=== PATIENT | male | born 1940 | race Two or more races ===

== ENCOUNTER 2020-04-06 21:21 | Inpatient (IN) ==
[2020-04-06] MEDS ORDERED: MAGNESIUM SULFATE IN WATER 50 ML IV ONE (22:00)
--- NOTE | 2020-04-06 22:00 | ERNOTE ---
Lower Extremity HPI - General Lower Extremities Pain: hip: right - Intertrochanteric fracture on the right Time Seen by Provider: 04/06/20 21:32 Source: patient - Immun/Allergies/Home Medications Immunizations: IMMUNIZATION HX Immunizations Up to Date Yes History of Influenza Vaccine Yes Hx Pneumococcal Vaccination More Information Required Allergies/Adverse Reactions: Allergies Allergy/AdvReac Type Severity Reaction Status Date / Time No Known Allergies Allergy Unverified 04/06/20 21:43 Home Medications: HOME MEDICATIONS Amlodipine Besylate 5 mg PO DAILY 04/06/20 [Last Taken Unknown] Aspirin [Aspirin Chewable] 81 mg PO DAILY 04/06/20 [Last Taken Unknown] Atorvastatin Calcium 40 mg PO DAILY 04/06/20 [Last Taken Unknown] Metoprolol Tartrate [Lopressor] 25 mg PO BID 04/06/20 [Last Taken Unknown] Mirtazapine 7.5 mg PO DAILY 04/06/20 [Last Taken Unknown] Nitroglycerin 0.4 mg SL PRN 04/06/20 [Last Taken Unknown] oxyCODONE HCL/ACETAMINOPHEN [Oxycodone-Acetaminophen 5-325] 1 ea PO QID 04/06/20 [Last Taken Unknown] traMADol HCL [Tramadol HCl] 50 mg PO QID 04/06/20 [Last Taken Unknown] traZODone HCL [Trazodone HCl] 50 mg PO HS 04/06/20 [Last Taken Unknown] - History of Present Illness Narrative: 79-year-old male sent from outside hospital [facility] after having a fall in his kitchen without LOC presents with a diagnosis of a right intertrochanteric fracture of the right hip accepted by orthopedics for admission to medicine with pending surgery at 9 AM. Patient denies any pain at this time states it is well controlled as long as he can get up and move around. He does have a remote history of prostate cancer throat cancer he does have hypertension and a chronic lung mass in addition patient self caths and is on trazodone at night for sleep. Patient denies any other complaints and of note has a skin tear and abrasion of the right arm Occurred: this evening, other - Patient sent in from outside hospital as a transfer with acceptance by Ortho Other Injuries: Reports: none Review of Systems - Review of Systems Constitutional: Present: no symptoms reported Musculoskeletal: Present: other - Right hip injury All Other Systems: All systems neg except as marked Medical History (Last Reviewed 04/06/20 @ 21:56 by Santo Hernandez MD) History of prostate cancer History of throat cancer Hypertension Pneumonia Self-catheterizes urinary bladder Physical Exam - Physical Exam General Appearance: Present: wd/wn, alert, no apparent distress Head Exam: Present: normal inspection, no evidence of injury Eye Exam: Normal inspection: bilateral Ears, Nose, Throat: Present: normal ENT inspection Neck: Present: normal inspection, nontender Respiratory: Present: no respiratory distress, normal breath sounds, no accessory muscle use, chest nontender Cardiovascular/Chest: Present: normal peripheral pulses, other - Occasional PVCs intermittently Gastrointestinal/Abdominal: Present: nontender, nondistended, soft Back Exam: Present: normal inspection, no CVA tenderness, no vertebral tenderness Extremity Exam: Present: other - Right leg shortened and externally rotated distal pulses intact and symmetrical sensation intact capillary refill less than 2 seconds intact bilaterally Neurological Exam: Present: alert Skin Exam: Present: normal color, warm/dry Progress - Vital Signs Vital Signs: Vital Signs 04/06/20 21:24 Temperature 37.0 C Pulse Rate 71 Respiratory Rate 28 H Blood Pressure 118/92 H O2 Sat by Pulse Oximetry 98 - EKG EKG #1 EKG: NSR, premature ventricular contraction EKG read: Reviewed by me EKG #2 EKG: NSR - Patient with intermittent PVCs repeat strip shows normal sinus rhythm - Progress/Reassessment Chief Complaint: Hip Pain/Injury Progress:: Improved Plan - Plan Plan: Per Ortho will admit to medicine. Will give patient a dose of magnesium for his PVCs and write for as needed pain medications as requested by the admitting medicine Dr. Najera. Case was discussed and accepted Departure Clinical Impression: Closed right hip fracture Qualifiers: Encounter type: initial encounter Qualified Code(s): S72.001A - Fracture of unspecified part of neck of right femur, initial encounter for closed fracture - Departure Disposition: Short Term Hospital Inpatient Condition: Good
[2020-04-07] MEDS: MORPHINE SULFATE 4 MG/ML SYRG IV PRN ×3 (00:33→08:18)
--- NOTE | 2020-04-07 05:43 | HP ---
Chief Complaint - Chief Complaint Date of Service: 04/07/20 Time of Service: 05:28 Chief Complaint: hip fracture History of Present Illness: Patient with past medical history of hypertension, prostate cancer, throat cancer, neurogenic bladder was at home and fell in his kitchen. He turned and lost his balance. He says he could tell it was fractured immediately and imaging done in [place] showed an intertrochanteric right hip fracture. He denies other symptoms. Pain is currently controlled. He was transferred here for operative management. Labs from [place] did not show significant abnormality. AST and ALT are mildly elevated in the 80s. White blood cells are a bit high at 16.8. EKG showed several PVCs, otherwise sinus rhythm. Medical History (Last Reviewed 04/06/20 @ 21:56 by Santo Hernandez MD) History of prostate cancer History of throat cancer Hypertension Pneumonia Self-catheterizes urinary bladder Surgical History: Surgical History (Last Updated 04/06/20 @ 22:01 by Claudette Norton RN) H/O right knee surgery History of prostate surgery D/T cancer Family History: Family History (Last Updated 04/06/20 @ 22:00 by Claudette Norton RN) Brother Pancreatic cancer Myocardial infarction Lung cancer Social History: (Last Updated 04/06/20 @ 21:53 by Claudette Norton RN) Social History: Marital status: lives independently: Yes current occupational status: retired Tobacco: Smoking Status: Current every day smoker tobacco type: cigarettes Smoking cigarettes per day: 30 Smoking packs per day: 1.5 Years smoked: 43 Alcohol: alcohol intake: former Substance Use: substance use type: does not use Review Of Systems (GEN) - Review of Systems Generalized/Overall Review: Absent: Fever Respiratory: Absent: Shortness of Breath Cardiac: Absent: Chest Pain, Edema Genitourinary: Present: Retention - He self caths about 5 times a day typically Musculoskeletal: Present: Joint Pain - Right hip Immunizations: IMMUNIZATION HX Immunizations Up to Date Yes History of Influenza Vaccine Yes Hx Pneumococcal Vaccination More Information Required Allergies/Adverse Reactions: Allergies Allergy/AdvReac Type Severity Reaction Status Date / Time No Known Allergies Allergy Verified 04/07/20 05:44 Home Medications: HOME MEDICATIONS Amlodipine Besylate 5 mg PO DAILY 04/06/20 [Last Taken Unknown] Aspirin [Aspirin Chewable] 81 mg PO DAILY 04/06/20 [Last Taken Unknown] Atorvastatin Calcium 40 mg PO DAILY 04/06/20 [Last Taken Unknown] Metoprolol Tartrate [Lopressor] 25 mg PO BID 04/06/20 [Last Taken Unknown] Mirtazapine 7.5 mg PO DAILY 04/06/20 [Last Taken Unknown] Nitroglycerin 0.4 mg SL PRN 04/06/20 [Last Taken Unknown] oxyCODONE HCL/ACETAMINOPHEN [Oxycodone-Acetaminophen 5-325] 1 ea PO QID 04/06/20 [Last Taken Unknown] traMADol HCL [Tramadol HCl] 50 mg PO QID 04/06/20 [Last Taken Unknown] traZODone HCL [Trazodone HCl] 50 mg PO HS 04/06/20 [Last Taken Unknown] Exam - Exam Vital Signs: Vital Signs - Last Taken Temp 36.8 C 04/07/20 04:00 Pulse 71 04/07/20 04:00 Resp 18 04/07/20 04:00 BP 117/47 04/07/20 04:00 Pulse Ox 91 L 04/07/20 04:00 Constitutional: Present: Alert, Cooperative, No distress Respiratory: Present: normal breath sounds, no respiratory distress Cardiovascular/Chest: Present: regular rate, rhythm Abdomen: Present: soft Extremity: Absent: lower extremity edema Neurologic: Present: normal mood/affect Diagnostic Studies: Laboratory Results SARS-CoV-2 (PCR) Not detected (NotDetected) 04/06/20 22:20 Assessment/Plan - Narrative Narrative: He will be undergoing surgical repair of his right intertrochanteric hip fractu re later this morning. Using the NSQIP surgical risk calculator he is above average risk for cardiac complication and postop delirium. Otherwise he is at average risk for any complication. Okay to proceed with surgery. We will need to discuss probable rehab facility placement on discharge. Pain is currently controlled with morphine. He has 4 times daily Percocet and 4 times daily tramadol on his home med list, so pain control may be more difficult. - Assessment/Plan (1) Hypertension Problem: Acute (2) Neurogenic bladder Problem: Acute (3) Closed right hip fracture Problem: Acute Qualifiers: Encounter type: initial encounter Qualified Code(s): S72.001A - Fracture of unspecified part of neck of right femur, initial encounter for closed fracture
[2020-04-07 06:48] LABS: Hematocrit 32.7 % (42.0-52.0); Hemoglobin 10.9 gm/dL (13.5-18.0); Mean Cell Volume 96.2 fl (78-100); Mean Corpuscular Hemoglobin 32.1 pg (27-31); Mean Corpuscular Hgb Conc 33.3 g/dl (32-36); Mean Platelet Volume 8.7 fl (8-11.3); Neutrophil # 10.7 K/mm3 (1.3-6.0); Neutrophil % 83.4 % (42-75.0); Platelet Count 241 K/mm3 (150-450); Red Cell Distribution Width 13.7 % (11.5-14.0); White Blood Count 12.8 K/mm3 (4.0-10.5)
[2020-04-07 07:02] LABS: Albumin * 2.7 gm/dl (3.4-5.0); Anion Gap 10.8 mmol/L (6.8-13.8); BUN/Creatinine Ratio 17.4 (9.0-21.6); Bilirubin, Total 0.4 mg/dL (0.0-1.1); Ca. Corrected For Albumin 9.1 mg/dL (8.4-10.2); Calcium * 8.4 mg/dL (7.9-10.9); Carbon Dioxide 26.2 mmol/L (24-32.6); Total Protein 6.3 gm/dL (6.2-8.2)
[2020-04-07] MEDS ORDERED: LIDOCAINE HCL 20 ML VIAL ONE (08:17)
[2020-04-07] MEDS ORDERED: ONDANSETRON HCL/PF 2 MG/ML VIAL ONE (08:18)
[2020-04-07] MEDS ORDERED: PROPOFOL VIAL IV ONE (08:18)
[2020-04-07] MEDS ORDERED: fentaNYL CITRATE/PF 50 MCG/ML AMPUL ONE (08:18)
[2020-04-07] MEDS ORDERED: ceFAZolin SODIUM 1 GM VIAL IM ONE (08:38)
--- NOTE | 2020-04-07 08:38 | CONS ---
- Reason for consultation (1) Closed right hip fracture Date of Service: 04/07/20 Reason for Consultation:: Donny is an 79-year-old gentleman who was in his kitchen last night and fell. His son who lives next door was with him at that time. He reports when he hit the ground he immediately knew that it hurt his hip. His son wanted to help him up but he advised to sign he did not think that was a good idea and requested he call the ambulance. He was brought into [facility] and evaluated by emergency department staff. He was found to have a displaced intertrochanteric hip fracture. I was contacted accepted transfer. He is admitted to Dr. Najera service and was seen this morning. At this time he has been cleared for surgery. He reports some mild soreness in his back but no other complaints. HPI - General Source: patient - History of Present Illness Timing/Duration: 24 hours Allergies/Adverse Reactions: Allergies No Known Allergies Allergy (Verified 04/07/20 05:44) Home Medications: Home Medications Medication Instructions Recorded Last Taken Amlodipine Besylate 5 mg PO DAILY 04/06/20 Unknown Aspirin [Aspirin Chewable] 81 mg PO DAILY 04/06/20 Unknown Atorvastatin Calcium 40 mg PO DAILY 04/06/20 Unknown Metoprolol Tartrate [Lopressor] 25 mg PO BID 04/06/20 Unknown Mirtazapine 7.5 mg PO DAILY 04/06/20 Unknown Nitroglycerin 0.4 mg SL PRN 04/06/20 Unknown oxyCODONE HCL/ACETAMINOPHEN 1 ea PO QID 04/06/20 Unknown [Oxycodone-Acetaminophen 5-325] traMADol HCL [Tramadol HCl] 50 mg PO QID 04/06/20 Unknown traZODone HCL [Trazodone HCl] 50 mg PO HS 04/06/20 Unknown Medications - Medications Current Medications: Current Medications Morphine Sulfate (Morphine Sulfate 4 Mg/Ml Syrg) 4 mg IV Q4H PRN PRN Reason: Pain Stop: 05/06/20 22:03 Last Admin: 04/07/20 08:18 Dose: 2 mg Documented by: Physical Examination - Exam Narrative: Patient is lying in bed at this time he is comfortable. He is alert and oriented at this time. Right lower extremity is externally rotated and shortened. He has local inguinal pain with palpation. He has no pain in his right knee, right lower leg, foot or ankle. Pulses intact right lower extremity. He reports he has sensation to light touch. He is able to plantarflex and dorsiflex the right ankle. X-rays reviewed show a displaced intertrochanteric hip fracture. Hemoglobin is 10.9. Vital signs stable. Vital Signs: Vital Signs - Last Taken Temp 37.4 C 04/07/20 06:36 Pulse 85 04/07/20 08:06 Resp 16 04/07/20 06:36 BP 110/52 04/07/20 06:36 Pulse Ox 95 04/07/20 06:36 O2 Oxygen Delivery Method Room Air - Results and Findings: Lab/Microbiology results last 24 hrs: Abnormal/Pending Laboratory Last 24 HRS 04/07/20 04/07/20 06:30 06:30 WBC 12.8 H RBC 3.40 L Hgb 10.9 L Hct 32.7 L MCH 32.1 H Immature Gran % (Auto) 1.00 H Immature Gran # (Auto) 0.13 H Neutrophils % 83.4 H Lymphocytes % 5.1 L Monocytes % 10.1 H Neutrophils # 10.7 H Lymphocytes # 0.66 L Monocytes # 1.3 H ALT 69 H Albumin 2.7 L - Assessments/Findings (1) Closed right hip fracture Diagnosis(s): Surgical risk discussed with Donny. Consents obtained. Plan is closed reduction cephalomedullary internal fixation of right intertrochanteric hip fracture. Patient will need 6 weeks of anticoagulation therapy postoperatively. Problem: Acute Qualifiers: Encounter type: initial encounter Qualified Code(s): S72.001A - Fracture of unspecified part of neck of right femur, initial encounter for closed fracture
[2020-04-07] MEDS: RINGER'S SOLUTION,LACTATED 1,000 ML IV PRN ×3 (08:48→13:27)
[2020-04-07] MEDS: METOPROLOL TARTRATE 25 MG TABLET PO SCH ×2 (08:48→20:20)
--- NOTE | 2020-04-07 09:52 | OR ---
Operative Report - Dictated Report Narrative: Date: 04/07/2020 Surgeon: Dayne Whitaker M.D. [employer] Instructor: Marvin Ospina PA-C (provided an essential set of skilled educated handset assisted with transfer, positioning, prepping, draping, placement of instruments, insertion of implants, irrigation, closure wounds, and placement of dressings all which could not be performed by the available surgical crew) Preoperative diagnosis: Closed right intertrochanteric femur fracture Postoperative diagnosis: Closed right intertrochanteric femur fracture Operations and procedures: 1. Closed reduction, cephalo-medullary fixation right intertrochanteric femur fracture 2. Intraoperative interpretation of radiographs Anesthesia: Spinal Specimens: None Estimated blood loss: 50 milliliters Retained implants: [employer] Trigen InterTAN 130 degree size 11.5 mm by 18 centimeter nail with 105 millimeter lag screw and 100 millimeter compression screw, with distal locking screw Complications: None Indications for procedure: Mr. Garcia is a 79-year-old gentleman who injured the right leg after a fall. They were admitted to the hospital after being evaluated in the emergency department. Once the medical provider felt that they were stable for surgical treatment, the risks and benefits alternatives were discussed. The risks of , blood clots, bleeding, infection, nerve/tendon/blood vessel injury, malunion, nonunion, failure of implants, painful implants, arthrosis, and need for additional procedures were discussed. The extremity was marked and consent was obtained on the floor. Procedure: After marking the operative extremity on the floor, the patient was taken to the operating room. A timeout was performed. IV antibiotics consisting of Ancef were administered. A spinal anesthetic was induced by anesthesia, and the patient was then placed onto a fracture table with a well-padded perineal post. The nonoperative leg was placed in a well-padded traction boot in slight extension without any traction with an SCD on the leg. The operative leg was placed in a well-padded traction boot. Longitudinal traction, internal rotation, and flexion were utilized in order to reduce the fracture. Preliminary images were attained utilizing C-arm in both the AP and lateral views. This confirmed that we had obtained adequate visualization of the fracture as well as reduction. Next the hip was then prepped and draped in a standard sterile fashion. Next the guidewire was placed percutaneously proximal to the greater trochanter to mag a starting point at the tip of the greater trochanter centered on the lateral view. This was passed down to the level below the lesser trochanter. A scalpel was utilized in order to dissect down to the greater trochanter in order to place the soft tissue protector down to bone. The entry drill was then placed down the proximal femur to the level of the lesser trochanter. The proper size nail was then selected and impacted into place. The outrigger was utilized in order to confirm the appropriate depth of the nail. Using the alignment device on the outrigger, an incision was made over the lateral femur. Sharp dissection was carried through the iliotibial band down to the proximal femur. The guidewire was placed into the femoral head in a center-center position on AP and lateral views. The tip-apex distance of less than 25 mm combined was obtained. Once we felt that we had placed a guidewire in the appropriate position, it was measured. Next the compression screw site was drilled through the lateral femoral cortex. This was then drilled down to the appropriate depth, again confirming that we are within the confines the bone. The derotational bar was then placed and the lag screw was drilled. The lag screw was then secured in place seating fully ensuring that we were within the confines of the bone. The compression screw was then inserted allowing for compression while releasing the traction on the leg. Using C-arm this was visualized to allow for compression across the fracture site. Once is felt that we had adequately stabilized the intertrochanteric fracture, the distal interlocking screw was placed in a dynamic position. It was confirmed to be the appropriate length and within the nail on both AP and lateral views. The nail was secured allowing for controlled compression and the outrigger was removed. The wounds were then thoroughly irrigated. Final images were obtained. The hip was placed through range of motion and showed no crepitance. The deep fascia was closed with 0 Vicryl, the subcutaneous tissue with 3-0 Vicryl, and the skin was closed with mark. Sterile dressings of Xeroform, 4 x 4, and tape were applied. All sponge, sharp, and instrument counts were correct prior to closing the wounds. The patient was then awoken and transferred to the postanesthesia care unit in stable condition.
[2020-04-07] MEDS ORDERED: MAG HYDROX/ALUMINUM HYD/SIMETH 30 ML UDC PO PRN (09:53)
[2020-04-07] MEDS ORDERED: ACETAMINOPHEN 500 MG TABLET PO PRN (09:53)
[2020-04-07] MEDS ORDERED: MAGNESIUM HYDROXIDE 30 ML UDC PO PRN (09:53)
[2020-04-07] MEDS ORDERED: ONDANSETRON HCL/PF 2 MG/ML VIAL IV PRN (09:53)
--- NOTE | 2020-04-07 10:25 | ANES ---
Anesthesia Pre Procedure Eval Vitals/Labs: Last Vital Signs Temp 36.8 C 04/07/20 10:10 Pulse 93 04/07/20 10:20 Resp 14 04/07/20 10:20 BP 114/56 04/07/20 10:20 Pulse Ox 100 04/07/20 10:20 HOME MEDICATIONS Amlodipine Besylate 5 mg PO DAILY 04/06/20 [Last Taken Unknown] Aspirin [Aspirin Chewable] 81 mg PO DAILY 04/06/20 [Last Taken Unknown] Atorvastatin Calcium 40 mg PO DAILY 04/06/20 [Last Taken Unknown] Metoprolol Tartrate [Lopressor] 25 mg PO BID 04/06/20 [Last Taken Unknown] Mirtazapine 7.5 mg PO DAILY 04/06/20 [Last Taken Unknown] Nitroglycerin 0.4 mg SL PRN 04/06/20 [Last Taken Unknown] oxyCODONE HCL/ACETAMINOPHEN [Oxycodone-Acetaminophen 5-325] 1 ea PO QID 04/06/20 [Last Taken Unknown] traMADol HCL [Tramadol HCl] 50 mg PO QID 04/06/20 [Last Taken Unknown] traZODone HCL [Trazodone HCl] 50 mg PO HS 04/06/20 [Last Taken Unknown] Allergies/Adverse Reactions: Allergies Allergy/AdvReac Type Severity Reaction Status Date / Time No Known Allergies Allergy Verified 04/07/20 05:44 - Planned Procedure Planned Procedure: RIGHT HIP FX Medication List Reviewed:: Yes Allergies Verified: Yes Medical History (Last Reviewed 04/07/20 @ 10:25 by Ethan Sosa CRNA) History of prostate cancer History of throat cancer Hypertension Pneumonia Self-catheterizes urinary bladder Surgical History (Last Reviewed 04/07/20 @ 10:25 by Ethan Sosa CRNA) H/O right knee surgery History of prostate surgery D/T cancer Family History (Last Reviewed 04/07/20 @ 10:25 by Ethan Sosa CRNA) Brother Pancreatic cancer Myocardial infarction Lung cancer - Airway/Neck/Teeth Teeth Condition: missing Mallampatti Score: 2 Thyromental (T-M) distance: > 6 cm Mandibulo Hyoid distance: > 3 cm - Respiratory Respiratory Physical: decreased breath sounds Smoking Status: Current every day smoker Discussed smoking cessation including day of surgery: Yes - Cardiovascular Tolerate Activity: Poor Heart Sounds: S1 & S2, Irregular - Gastrointestinal NPO since: mn - Anesthesia Assessment and Plan ASA Class: PS, III, E Anesthesia Type Plan: Spinal
--- NOTE | 2020-04-07 10:26 | ANES ---
Post Anesthesia Discharge - Transfer of Care Transfer of Care handoff given to nurse: Yes - Discharge from PACU Discharge from PACU when meets criteria: Yes - Discharge to ASU Discharge to ASU-no complications/pt stable: Yes
--- NOTE | 2020-04-07 10:37 | ANES ---
Post Anesthesia Assessment - Vital Signs Vitals: Last Vital Signs Temp 37.0 C 04/07/20 10:30 Pulse 87 04/07/20 10:30 Resp 14 04/07/20 10:30 BP 104/47 04/07/20 10:30 Pulse Ox 100 04/07/20 10:30 Airway Patency: Normal - Mental Status Level Of Consciousness: Awake - Pain Level Pain Score: 0 - N/V Assessment Nausea/Vomiting Presence: None Dehydration:: No
[2020-04-07] MEDS: amLODIPine BESYLATE 5 MG TABLET PO SCH (10:44)
[2020-04-07] MEDS: MIRTAZAPINE 15 MG TABLET PO SCH (10:45)
[2020-04-07] MEDS: ROSUVASTATIN CALCIUM 20 MG TABLET PO SCH (10:45)
[2020-04-07] MEDS: oxyCODONE HCL/ACETAMINOPHEN 1 TAB TABLET PO SCH ×4 (10:45→20:20)
[2020-04-07] MEDS: ceFAZolin SODIUM 1 GM in DEXTROSE 5 % IN WATER 100 ML IV SCH ×6 (11:10→23:35)
[2020-04-07] MEDS: SENNOSIDES/DOCUSATE SODIUM 1 TAB TABLET PO SCH (20:20)
[2020-04-07] MEDS: traZODone HCL 50 MG TABLET PO SCH (20:21)
[2020-04-08 06:32] LABS: Hematocrit 28.8 % (42.0-52.0); Hemoglobin 9.5 gm/dL (13.5-18.0); Mean Cell Volume 96.6 fl (78-100); Mean Corpuscular Hemoglobin 31.9 pg (27-31); Mean Platelet Volume 8.7 fl (8-11.3); Platelet Count 191 K/mm3 (150-450); Red Blood Count 2.98 M/mm3 (4.7-6.0); Red Cell Distribution Width 13.6 % (11.5-14.0); White Blood Count 9.5 K/mm3 (4.0-10.5)
[2020-04-08 06:36] LABS: Anion Gap 11.5 mmol/L (6.8-13.8); BUN/Creatinine Ratio 15.5 (9.0-21.6); Calcium * 8.3 mg/dL (7.9-10.9); Carbon Dioxide 26.3 mmol/L (24-32.6); Estimated Creat Clear 64.5; Potassium 3.8 mmol/L (3.4-4.6)
[2020-04-08] MEDS: MORPHINE SULFATE 4 MG/ML SYRG IV PRN (06:43)
[2020-04-08] MEDS: ROSUVASTATIN CALCIUM 20 MG TABLET PO SCH (09:50)
[2020-04-08] MEDS: oxyCODONE HCL/ACETAMINOPHEN 1 TAB TABLET PO SCH ×4 (09:50→20:58)
[2020-04-08] MEDS: METOPROLOL TARTRATE 25 MG TABLET PO SCH ×2 (09:51→20:59)
[2020-04-08] MEDS: amLODIPine BESYLATE 5 MG TABLET PO SCH (09:51)
[2020-04-08] MEDS: MIRTAZAPINE 15 MG TABLET PO SCH (09:51)
[2020-04-08] MEDS: RIVAROXABAN 20 MG TABLET PO SCH (10:05)
--- NOTE | 2020-04-08 11:27 | PN ---
Subjective - Date and Time Seen Date: 04/08/20 Time: 11:25 Subjective Narrative: Subjective: Reports no concerns. Was able to get to the chair with therapy. Pain is well-controlled. Catheter in place. He states that he straight caths himself at home. Tolerating by mouth intake. Denies any nausea or vomiting. Denies calf pain. Slept well. Physical exam: Alert and oriented to person, place and time Right lower extremity: Palpable dorsalis pedis pulse. Sensation grossly intact to light touch. Dressings intact. Able to flex and extend ankle and toes. No excessive drainage. Calf and thigh are soft and nontender. Assessment: Postop day 1 status post cephalomedullary fixation of right intertrochanteric femur fracture. Plan: Continue with physical and occupational therapy weightbearing as tolerated. Continue with anticoagulation-he will need 6 weeks of DVT prophylaxis. 24 hours postoperative prophylactic antibiotics. Pain control with goal to rely on oral medications. Continue bowel regimen. Will need 6 weeks with walker or assitive device to protect joint while ambulating during the recovery process. Discharge planning. Continue Chiu catheter due to pre-existing need for straight caths in the past. Objective - Vitals Vitals: Last Vital Signs Temp 37.1 C 04/08/20 10:52 Pulse 76 04/08/20 10:52 Resp 18 04/08/20 10:52 BP 114/59 04/08/20 10:52 Pulse Ox 92 L 04/08/20 10:52 - Abnormal Lab Findings Abnormal Lab Findings: Abnormal Lab Results 04/08/20 Range/Units 06:05 RBC 2.98 L (4.7-6.0) M/mm3 Hgb 9.5 L (13.5-18.0) gm/dL Hct 28.8 L (42.0-52.0) % MCH 31.9 H (27-31) pg Assessment/Plan - Problems/Diagnosis (1) Fracture, intertrochanteric, right femur Problem: Acute Qualifiers: Encounter type: subsequent encounter Fracture type: closed Fracture alignment: displaced Fracture healing: with routine healing Qualified Code(s): S72.141D - Displaced intertrochanteric fracture of right femur, subsequent encounter for closed fracture with routine healing
--- NOTE | 2020-04-08 12:13 | PN ---
Subjective - Date and Time Seen Date: 04/08/20 Time: 09:15 Subjective Narrative: He feels like his surgery went well yesterday. He was able to work with PT this morning. He has some intermittent shortness of breath, not increased from his baseline. He used IV morphine once since yesterday morning. Objective - Review of Systems Generalized/Overall Review: Denies: Fever Respiratory: Reports: Shortness of Breath - not increased from baseline. Denies: Cough Cardiac: Denies: Chest Pain, Edema Abdominal: Reports: No Symptoms Reported Genitourinary Symptoms: Reports: Retention - his baseline - self caths 5 times per day Musculoskeletal Complaints: Reports: Joint Pain - right hip - Vitals Vitals: Last Vital Signs Temp 37.1 C 04/08/20 10:52 Pulse 76 04/08/20 10:52 Resp 18 04/08/20 10:52 BP 114/59 04/08/20 10:52 Pulse Ox 92 L 04/08/20 10:52 - Abnormal Lab Findings Abnormal Lab Findings: Abnormal Lab Results 04/08/20 Range/Units 06:05 RBC 2.98 L (4.7-6.0) M/mm3 Hgb 9.5 L (13.5-18.0) gm/dL Hct 28.8 L (42.0-52.0) % MCH 31.9 H (27-31) pg - Exam Constitutional: Present: Alert, Cooperative, No distress Respiratory: Present: normal breath sounds, no respiratory distress Cardiovascular/Chest: Present: regular rate, rhythm Abdomen: Present: soft Extremity: Absent: lower extremity edema Eye contact: Present: cooperative, good eye contact Assessment/Plan Plan Narrative: He is post-op day #1 surgical repair of right intertrochanteric hip fracture. He turned in his kitchen and fell, causing the fracture. He did work with physical therapy this morning, who recommends SNF after discharge, with which he agrees. Will enlist case management help with placement tomorrow. Pain is currently controlled with his home medications plus IV morphine. Can continue the IV morphine today, and will attempt to discontinue IV pain meds tomorrow. - Problems/Diagnosis (1) Fracture, intertrochanteric, right femur Problem: Acute Qualifiers: Encounter type: subsequent encounter Fracture type: closed Fracture alignment: displaced Fracture healing: with routine healing Qualified Code(s): S72.141D - Displaced intertrochanteric fracture of right femur, subsequent encounter for closed fracture with routine healing (2) Hypertension Problem: Acute Narrative: Well controlled, even borderline low. If he develops dizziness or if systolic blood pressure remains 110 or less, will hold his 5 mg amlodipine. (3) Neurogenic bladder Problem: Acute Narrative: We will continue his Ch[place] while hospitalized. He normally self caths 5 times a day. (4) Closed right hip fracture Problem: Acute Qualifiers: Encounter type: initial encounter Qualified Code(s): S72.001A - Fracture of unspecified part of neck of right femur, initial encounter for closed fracture (5) History of throat cancer Problem: Chronic (6) History of prostate cancer Problem: Chronic
[2020-04-08] MEDS: SENNOSIDES/DOCUSATE SODIUM 1 TAB TABLET PO SCH (20:58)
[2020-04-08] MEDS: traZODone HCL 50 MG TABLET PO SCH (20:59)
[2020-04-09] MEDS: oxyCODONE HCL/ACETAMINOPHEN 1 TAB TABLET PO SCH ×4 (08:44→21:15)
[2020-04-09] MEDS: RIVAROXABAN 20 MG TABLET PO SCH (08:45)
[2020-04-09] MEDS: ROSUVASTATIN CALCIUM 20 MG TABLET PO SCH (08:45)
[2020-04-09] MEDS: MIRTAZAPINE 15 MG TABLET PO SCH (08:45)
[2020-04-09] MEDS: METOPROLOL TARTRATE 25 MG TABLET PO SCH ×2 (08:47→21:15)
[2020-04-09] MEDS: amLODIPine BESYLATE 5 MG TABLET PO SCH (08:48)
--- NOTE | 2020-04-09 10:43 | PN ---
Subjective - Date and Time Seen Date: 04/09/20 Time: 10:25 Subjective Narrative: Patient was dizzy this morning after working with PT. Otherwise, is eating and drinking. Pain is controlled. He agrees to placement at [facility] in [place]. Objective - Review of Systems Generalized/Overall Review: Denies: Fever Respiratory: Denies: Shortness of Breath Cardiac: Denies: Chest Pain Abdominal: Reports: No Symptoms Reported Genitourinary Symptoms: Reports: Retention - self caths at baseline Musculoskeletal Complaints: Reports: Joint Pain - right hip - pain controlled - Vitals Vitals: Last Vital Signs Temp 37.4 C 04/09/20 10:16 Pulse 61 04/09/20 10:16 Resp 12 04/09/20 10:16 BP 131/43 04/09/20 10:16 Pulse Ox 97 04/09/20 10:16 - Exam Constitutional: Present: Alert, Cooperative, No distress Respiratory: Present: normal breath sounds, no respiratory distress Cardiovascular/Chest: Present: regular rate, rhythm Abdomen: Present: soft Extremity: Absent: lower extremity edema Eye contact: Present: cooperative, good eye contact Assessment/Plan Plan Narrative: He is POD #2 surgical repair of right intertrochanteric hip fracture. His pain is currently controlled. He is working with PT, and this morning demonstrated gait instability, difficulty with transfers, and fatigued quickly. SNF recommended, with which he agreed. BP a bit low this morning, 107/40, so home antihypertensive are held currently. Will restart for BP consistently greater than 140/90. He has a neurogenic bladder, and usually self caths several times daily. Will keep the carrington while hospitalized. - Problems/Diagnosis (1) Fracture, intertrochanteric, right femur Problem: Acute Qualifiers: Encounter type: subsequent encounter Fracture type: closed Fracture alignment: displaced Fracture healing: with routine healing Qualified Cod e(s): S72.141D - Displaced intertrochanteric fracture of right femur, subsequent encounter for closed fracture with routine healing (2) Hypertension Problem: Acute (3) Neurogenic bladder Problem: Acute (4) Closed right hip fracture Problem: Acute Qualifiers: Encounter type: initial encounter Qualified Code(s): S72.001A - Fracture of unspecified part of neck of right femur, initial encounter for closed fracture (5) History of throat cancer Problem: Chronic (6) History of prostate cancer Problem: Chronic
[2020-04-09] MEDS: traZODone HCL 50 MG TABLET PO SCH (21:14)
[2020-04-09] MEDS: SENNOSIDES/DOCUSATE SODIUM 1 TAB TABLET PO SCH (21:15)
[2020-04-10] MEDS: METOPROLOL TARTRATE 25 MG TABLET PO SCH ×2 (09:16→20:06)
[2020-04-10] MEDS: RIVAROXABAN 20 MG TABLET PO SCH (09:17)
[2020-04-10] MEDS: ROSUVASTATIN CALCIUM 20 MG TABLET PO SCH (09:18)
[2020-04-10] MEDS: MIRTAZAPINE 15 MG TABLET PO SCH (09:18)
[2020-04-10] MEDS: oxyCODONE HCL/ACETAMINOPHEN 1 TAB TABLET PO SCH ×4 (09:20→20:08)
--- NOTE | 2020-04-10 15:07 | PN ---
Subjective - Date and Time Seen Date: 04/10/20 Time: 08:35 Subjective Narrative: Pain is controlled. He was able to walk to the bathroom with assistance. At home, he self caths, so he does not need to get to the bathroom multiple times daily. He declines NH placement. Had a BM yesterday. Denies new concerns. Objective - Review of Systems Generalized/Overall Review: Denies: Fever Respiratory: Denies: Cough, Shortness of Breath Cardiac: Denies: Chest Pain, Edema Abdominal: Reports: No Symptoms Reported Genitourinary Symptoms: Reports: Retention Musculoskeletal Complaints: Reports: Joint Pain - Vitals Vitals: Last Vital Signs Temp 36.3 C 04/10/20 14:00 Pulse 83 04/10/20 14:00 Resp 20 04/10/20 14:00 BP 112/41 04/10/20 14:00 Pulse Ox 96 04/10/20 14:00 - Exam Constitutional: Present: Alert, Cooperative, No distress, Elderly Respiratory: Present: lungs clear, normal breath sounds Cardiovascular/Chest: Present: regular rate, rhythm Abdomen: Present: soft Extremity: Absent: lower extremity edema Eye contact: Present: cooperative, good eye contact Cauti Physician Documentation - Urinary Catheter Management Urethral (Carrington) Urethral Indwelling: Yes Reason for Continuing Indwelling Catheter: Obstruction/Retention Date of Insertion: 04/09/20 Assessment/Plan Plan Narrative: He is POD #3 surgical repair of right intertrochanteric hip fracture. His pain is controlled, but mobility is limited. He declines alf placement. post op instructions per ortho. He has been working with PT, but doesn't think he will be able to get into a vehicle to go home, and has 4 stairs to get into his house. Will keep him here for one more day with therapy, and possible DC home tomorrow. He also declines home health. He has a neurogenic bladder and self caths 5 times daily. Will keep his carrington until DC. - Problems/Diagnosis (1) Fracture, intertrochanteric, right femur Problem: Acute Qualifiers: Encounter type: subsequent encounter Fracture type: closed Fracture alignment: displaced Fracture healing: with routine healing Qualified Code(s): S72.141D - Displaced intertrochanteric fracture of right femur, subsequent encounter for closed fracture with routine healing (2) Hypertension Problem: Chronic (3) Neurogenic bladder Problem: Chronic (4) Closed right hip fracture Problem: Acute Qualifiers: Encounter type: initial encounter Qualified Code(s): S72.001A - Fracture of unspecified part of neck of right femur, initial encounter for closed fracture (5) History of throat cancer Problem: Chronic (6) History of prostate cancer Problem: Chronic
[2020-04-10] MEDS: SENNOSIDES/DOCUSATE SODIUM 1 TAB TABLET PO SCH (20:05)
[2020-04-10] MEDS: traZODone HCL 50 MG TABLET PO SCH (20:06)
[2020-04-11 09:00] LABS: Hematocrit 28.1 % (42.0-52.0); Hemoglobin 9.3 gm/dL (13.5-18.0); Mean Cell Volume 97.9 fl (78-100); Mean Corpuscular Hemoglobin 32.4 pg (27-31); Mean Corpuscular Hgb Conc 33.1 g/dl (32-36); Mean Platelet Volume 8.4 fl (8-11.3); Neutrophil # 7.2 K/mm3 (1.3-6.0); Platelet Count 241 K/mm3 (150-450); Red Blood Count 2.87 M/mm3 (4.7-6.0); Red Cell Distribution Width 13.5 % (11.5-14.0); White Blood Count 8.7 K/mm3 (4.0-10.5)
[2020-04-11 09:12] LABS: Albumin * 2.5 gm/dl (3.4-5.0); Anion Gap 12.7 mmol/L (6.8-13.8); BUN/Creatinine Ratio 15.6 (9.0-21.6); Bilirubin, Total 0.8 mg/dL (0.0-1.1); Ca. Corrected For Albumin 9.2 mg/dL (8.4-10.2); Calcium * 8.3 mg/dL (7.9-10.9); Carbon Dioxide 26.2 mmol/L (24-32.6); Potassium 3.9 mmol/L (3.4-4.6); Total Protein 6.5 gm/dL (6.2-8.2)
[2020-04-11] MEDS: MIRTAZAPINE 15 MG TABLET PO SCH (09:20)
[2020-04-11] MEDS: RIVAROXABAN 20 MG TABLET PO SCH (09:20)
[2020-04-11] MEDS: ROSUVASTATIN CALCIUM 20 MG TABLET PO SCH (09:20)
[2020-04-11] MEDS: METOPROLOL TARTRATE 25 MG TABLET PO SCH (09:20)
[2020-04-11] MEDS: amLODIPine BESYLATE 5 MG TABLET PO SCH (09:21)
[2020-04-11] MEDS: oxyCODONE HCL/ACETAMINOPHEN 1 TAB TABLET PO SCH (09:24)
--- NOTE | 2020-04-11 09:42 | DS ---
(1) Fracture, intertrochanteric, right femur Problem: Acute Qualifiers: Encounter type: subsequent encounter Fracture type: closed Fracture alignment: displaced Fracture healing: with routine healing Qualified Code(s): S72.141D - Displaced intertrochanteric fracture of right femur, subsequent encounter for closed fracture with routine healing (2) Hypertension Problem: Chronic (3) Neurogenic bladder Problem: Chronic (4) Closed right hip fracture Problem: Acute Qualifiers: Encounter type: initial encounter Qualified Code(s): S72.001A - Fracture of unspecified part of neck of right femur, initial encounter for closed fracture (5) History of throat cancer Problem: Chronic (6) History of prostate cancer Problem: Chronic Date of Discharge:: 04/11/20 Hospital Course: Patient with past medical history of hypertension, prostate cancer, throat cancer, neurogenic bladder was at home and fell in his kitchen. He turned and lost his balance. He initially went to the [place] and was transferred here for surgical repair of an intertrochanteric right hip fracture. AST and ALT were mildly elevated in the 80s. White blood cells were a bit high at 16.8. These lab abnormalities resolved during his stay. EKG showed several PVCs, otherwise sinus rhythm. Surgical repair was done 04/07/20. He used one dose of IV morphine after his surgery, and otherwise his pain was controlled with him home oxycodone and tramadol. For his neurogenic bladder, he self caths 5 times per day, so a carrington was in place for the duration of his stay and removed just before discharge. He declined rehab facility placement after DC, but consented to home health. He was able to walk with PT. He has 3 sons, and reports he will have someone with him at all times. Ortho instructions: Continue with physical and occupational therapy, weightbearing as tolerated. Continue with anticoagulation-he will need 6 weeks of DVT prophylaxis with Xarelto. Continue bowel regimen. Will need 6 weeks with walker or assistive device to protect joint while ambulating during the recovery process. He is to follow up with ortho in 2 weeks. Keep wound clean and dry. Mr. Garcia is homebound due to his hip fracture. The need for [place] [facility] is monitoring of healing and surgery follow up. The need for physical therapy is post op surgical intertrochanteric hip fracture repair, for strengthening, gait issues, mobility issues. The need for home health care skilled services is directly related to the time spent face to face with him. Procedures Performed: see notes below - Closed reduction, cephalo-medullary fixation right intertrochanteric femur fracture Results and Findings: Lab Pending Results 04/06/20 22:20: SARS-CoV-2 (PCR) Not detected 04/07/20 06:30: WBC 12.8 H, RBC 3.40 L, Hgb 10.9 L, Hct 32.7 L, MCV 96.2, MCH 32.1 H, MCHC 33.3, RDW 13.7, Plt Count 241, MPV 8.7, Immature Gran % (Auto) 1.00 H, Immature Gran # (Auto) 0.13 H, Neutrophils % 83.4 H, Lymphocytes % 5.1 L, Monocytes % 10.1 H, Eosinophils % 0.2, Basophils % 0.2, Nucleated RBC % 0.0, Neutrophils # 10.7 H, Lymphocytes # 0.66 L, Monocytes # 1.3 H, Eosinophils # 0.0, Absolute Basophils 0.0 04/07/20 06:30: Sodium 136, Plasma Sodium 136, Potassium 4.0, Chloride 103, Carbon Dioxide 26.2, Anion Gap 10.8, BUN 16, Creatinine 0.92, Est GFR (Non-Af Amer) 84, BUN/Creatinine Ratio 17.4, Random Glucose 103, Calcium 8.4, Calcium Adj for Albumin 9.1, Total Bilirubin 0.4, AST 46, ALT 69 H, Alkaline Phosphatase 105, Total Protein 6.3, Albumin 2.7 L 04/08/20 06:05: WBC 9.5 D, RBC 2.98 L, Hgb 9.5 L, Hct 28.8 L, MCV 96.6, MCH 31.9 H, MCHC 33.0, RDW 13.6, Plt Count 191, MPV 8.7 04/08/20 06:05: Sodium 137, Plasma Sodium 137, Potassium 3.8, Chloride 103, Carbon Dioxide 26.3, Anion Gap 11.5, BUN 13, Creatinine 0.84, Est GFR (Non-Af Amer) 93, BUN/Creatinine Ratio 15.5, Random Glucose 110, Calcium 8.3 04/11/20 08:54: WBC 8.7, RBC 2.87 L, Hgb 9.3 L, Hct 28.1 L, MCV 97.9, MCH 32.4 H, MCHC 33.1, RDW 13.5, Plt Count 241, MPV 8.4, Immature Gran % (Auto) 0.80 H, Immature Gran # (Auto) 0.07 H, Neutrophils % 82.0 H, Lymphocytes % 6.4 L, [place] cytes % 7.3, Eosinophils % 3.3 H, Basophils % 0.2, Nucleated RBC % 0.0, Neutrophils # 7.2 H, Lymphocytes # 0.56 L, Monocytes # 0.6, Eosinophils # 0.3, Absolute Basophils 0.0 04/11/20 08:54: Sodium 137, Plasma Sodium 137, Potassium 3.9, Chloride 102, Carbon Dioxide 26.2, Anion Gap 12.7, BUN 12, Creatinine 0.77, Est GFR (Non-Af Amer) 103, BUN/Creatinine Ratio 15.6, Random Glucose 118 H, Calcium 8.3, Calcium Adj for Albumin 9.2, Total Bilirubin 0.8, AST 55 H, ALT 57, Alkaline Phosphatase 106, Total Protein 6.5, Albumin 2.5 L Discharge Location: Home Disposition: Home Health Service Home Health Agency: Other - [facility] Condition: Good Discharge Activity: Weight bearing Discharge Diet: General/regular food Referrals: Dayne Whitaker MD [Staff Physician] - Two Weeks Additional Patient Instructions (free text): [facility]. Please call and fax discharge information to [phone]. Follow up [facility] Orthopedic office appointment on ThursdayApril 25 at 10:15am. Keep Dressing to hip clean and dry covered with dressing. Will need 6 weeks with walker or assitive device to protect joint while ambulating during the recovery process. Prescriptions (Any new or edited meds): Mag Hydrox/Aluminum Hyd/Simeth [Maalox Plus Suspension] 30 ml PO Q6H PRN #1 bottle PRN Reason: Indigestion [id number] Magnesium Hydroxide [Milk Of Magnesia] 30 ml PO DAILY PRN #1 bottle PRN Reason: Constipation [email or web address] Sennosides/Docusate Sodium [Senokot-S] 2 tab PO HS PRN #60 tab PRN Reason: Constipation Transmission Status: Pending to [facility] Acetaminophen [Tylenol] 1,000 mg PO Q6H PRN #60 tab PRN Reason: Mild Pain (Pain Scale 1-3) Transmission Status: Pending to [facility] Rivaroxaban [Xarelto] 10 mg PO DAILY #38 tab Transmission Status: Pending to [facility] Complete Home Medications List: Complete Home Medication List: Amlodipine Besylate 5 mg PO DAILY 04/06/20 Aspirin [Aspirin Chewable] 81 mg PO DAILY 04/06/20 Atorvastatin Calcium 40 mg PO DAILY 04/06/20 Metoprolol Tartrate [Lopressor] 25 mg PO BID 04/06/20 Mirtazapine 7.5 mg PO DAILY 04/06/20 Nitroglycerin 0.4 mg SL PRN 04/06/20 oxyCODONE HCL/ACETAMINOPHEN [Oxycodone-Acetaminophen 5-325] 1 ea PO QID 04/06/20 traMADol HCL [Tramadol HCl] 50 mg PO QID 04/06/20 traZODone HCL [Trazodone HCl] 50 mg PO HS 04/06/20 Acetaminophen [Tylenol] 1,000 mg PO Q6H PRN #60 tab 04/11/20 Mag Hydrox/Aluminum Hyd/Simeth [Maalox Plus Suspension] 30 ml PO Q6H PRN #1 bottle 04/11/20 Magnesium Hydroxide [Milk Of Magnesia] 30 ml PO DAILY PRN #1 bottle 04/11/20 Rivaroxaban [Xarelto] 10 mg PO DAILY #38 tab 04/11/20 Sennosides/Docusate Sodium [Senokot-S] 2 tab PO HS PRN #60 tab 04/11/20 Forms: Patient Portal Registration
[2020-04-11 11:19] VITALS: BP 121/45
== END 2020-04-11 11:22 | disposition home health service (06) | DRG 482 ==
LOC: ER 21:21 → MS 23:43
PROVIDERS: ADMIT Family Medicine; ATTEND Family Medicine